=== PATIENT | male | born 1960 | race American Indian/Alaskan Native ===

== ENCOUNTER 2021-05-16 20:25 | Emergency (ER) | payer BC ==
[2021-05-16] MEDS ORDERED: IPRATROPIUM/ALBUTEROL SULFATE 3 ML AMPUL.NEB IH ONE (21:22)
[2021-05-16] MEDS ORDERED: predniSONE 50 MG TAB PO ONE (21:23)
--- NOTE | 2021-05-16 21:29 | Emergency Department Report ---
HPI - General Chief Complaint: Dyspnea/Respdistress Time Seen by Provider: 05/16/21 21:11 - HPI HPI: 60-year-old -[place] male presents to the emergency department with the complaint of a 4 to 5-day history some wheezing and mild shortness of breath. Patient denies any chest pain or any tightness but says "over the past few days sometimes I can hear myself breathing." He came into the emergency department because he says that he did not want to ignore something and have it turned into something worse. He denies any fever, cough, lower extremity swelling, back pain, nausea, vomiting or diaphoresis. Patient has a history of hypertension. He is a daily cigar smoker. Patient does not have any history of alcohol dependence but admits to drinking heavily over the weekend. He has been taking some Augmentin for a toothache, Mucinex, and is on amlodipine for his blood pressure. He is vaccinated against COVID-19. No recent travel or sick contacts at home. ED Past Medical Hx - Past Medical History Previous Medical History?: No - Surgical History Past Surgical History?: No - Social History Smoking Status: Current Some Day Smoker Substance Use Type: None - Medications Home Medications: Home Medications Medication Instructions Recorded Confirmed Last Taken Type Albuterol Mdi (or & Nicu Only) 2 puff IH QID PRN #8.5 gram 05/16/21 Unknown Rx [ProAir HFA Inhaler] predniSONE [Deltasone] 20 mg PO BID #6 tab 05/16/21 Unknown Rx ED Review of Systems ROS: Stated complaint: SOB Other details as noted in HPI Comment: All other systems reviewed and negative Constitutional: denies: chills, fever Eyes: denies: eye pain, vision change ENT: denies: ear pain, throat pain Respiratory: shortness of breath, wheezing Cardiovascular: denies: chest pain, edema Gastrointestinal: denies: abdominal pain, vomiting Genitourinary: denies: dysuria, discharge Musculoskeletal: denies: back pain, arthralgia Skin: denies: rash, lesions Neurological: denies: headache, weakness Physical Exam - Physical Exam Physical Exam: GENERAL: The patient is well-developed well-nourished. HENT: Normocephalic. Atraumatic. Patient has moist mucous membranes. EYES: Extraocular motions are intact. NECK: Supple. Trachea is midline. CHEST/LUNGS: Mild to moderate expiratory wheezing. No tachypnea or accessory muscle use. HEART/CARDIOVASCULAR: Regular. There is no tachycardia. There is no murmur. ABDOMEN: Abdomen is soft, nontender. Patient has normal bowel sounds. SKIN: Skin is warm and dry. NEURO: The patient is awake, alert, and oriented. The patient is cooperative. The patient has no focal neurologic deficits. Normal speech. MUSCULOSKELETAL: There is no tenderness or deformity. There is no limitation range of motion. ED Medical Decision Making - EKG Data -: EKG Interpreted by Me EKG shows normal: sinus rhythm, axis, intervals, QRS complexes, ST-T waves Rate: normal - EKG Data When compared to previous EKG there are: previous EKG unavailable Interpretation: normal EKG - Radiology Data Radiology results: image reviewed interpreted by me: Chest x-ray does not show any acute process. There are no pleural effusions, obvious pneumonia and there is no pneumothorax. No widened mediastinum. - Medical Decision Making This patient presents with a 4 to 5-day history of some wheezing without any significant shortness of breath. On examination he has mild to moderate expiratory wheezing. No tachypnea, accessory muscle use, or signs of any respiratory or acute distress. Chest x-ray does not show any pneumonia, pleural effusions, pneumothorax, widened mediastinum or any acute process. The patient was given a dose of prednisone and a DuoNeb breathing treatment. Upon reevaluation his wheezing/bronchospasm has decreased and the patient says that he feels improved. No oxygen desaturation with any ambulation. For all these reasons the patient appears safe for discharge home at this time. He has been given an albuterol inhaler and a course of steroids. He has been given outpatient referrals for primary care. He will return to the emergency department with any worsening of his symptoms or with any acute distress. Critical Care Time: No Critical care attestation.: If time is entered above; I have spent that time in minutes in the direct care of this critically ill patient, excluding procedure time. ED Disposition Clinical Impression: Bronchospasm Hypertension Qualifiers: Hypertension type: primary hypertension Qualified Code(s): I10 - Essential (primary) hypertension Disposition: 01 HOME / SELF CARE / HOMELESS Is pt being admited?: No Condition: Stable Instructions: Bronchospasm, Adult, Hypertension, Adult, Hypertension (ED) Additional Instructions: Please follow-up with a primary care physician in the next few days. I have given you a referral for a local primary care physician, Dr. Rivera, and a primary care clinic, [facility]. Take all medications as prescribed. Try to stay away from foods that are high in salt and caffeinated products. Keep a blood pressure log. Return to the emergency department with any worsening of your symptoms, new or concerning symptoms not addressed during this current emergency department visit, or with any acute distress. Prescriptions: predniSONE [Deltasone] 20 mg PO BID #6 tab Albuterol Mdi (or & Nicu Only) [ProAir HFA Inhaler] 2 puff IH QID PRN #8.5 gram PRN Reason: Shortness Of Breath Referrals: JOHN RIVERA MD [Staff Physician] - 3-5 Days [facility] [Provider Group] - 3-5 Days Time of Disposition: 22:43
--- NOTE | 2021-05-16 21:59 | XRay Report ---
CHEST 2 VIEWS INDICATION / CLINICAL INFORMATION: SOB. COMPARISON: None available. FINDINGS: SUPPORT DEVICES: None. HEART / MEDIASTINUM: The descending thoracic aorta is mildly tortuous. The proximal ascending aorta a ppears prominent on the lateral view. The heart size is within normal limits. LUNGS / PLEURA: No significant pulmonary or pleural abnormality. No pneumothorax. ADDITIONAL FINDINGS: No significant additional findings. IMPRESSION: 1. The descending thoracic aorta is mildly tortuous and the proximal ascending aorta appears mildly p rominent on the lateral view. This could be further evaluated with nonemergent echocardiogram if clin ically indicated. 2. The lungs are clear. Signer Name: Sam Story MD Signed: 05/16/2021 9:54 PM Workstation Name: [id number]
[2021-05-16 22:59] VITALS: BP 164/101
--- NOTE | 2021-05-18 11:46 | Electrocardiograph Report ---
[facility] Test Date: 2021-05-16 Test Time: 20:44:25 Pat Name: HEATHER WILSON Department: Room: Gender: M [employer]: : 1960 Requested By: DEUCE PADILLA Order Number: [id number] Reading MD: Weston Salazar Measurements Intervals [place] Rate: 88 P: -17 PA: 161 QRS: 6 QRSD: 67 T: 3 QT: 349 QTc: 423 Interpretive Statements Sinus rhythm Borderline ST elevation, anterior leads No previous ECG available for comparison Electronically Signed On 05-18-2021 11:45:39 EDT by Weston Salazar
== END 2021-05-16 22:59 | disposition home or self-care (01) ==
LOC: ED 20:25
DX: J98.01 Acute bronchospasm (principal); I10 Essential (primary) hypertension; F17.200 Nicotine dependence, unspecified, uncomplicated
CPT/HCPCS: 71046; 93005; 94640; 99283; J7512

== ENCOUNTER 2021-06-07 13:56 | Outpatient (CLI) | payer OTHER ==
--- NOTE | 2021-06-07 17:36 | XRay Report ---
LEFT ANKLE 3 VIEWS INDICATION: LEFT ANKLE PAIN. COMPARISON: None. IMPRESSION: No acute osseous abnormality is detected. Mild osteoarthritic changes are noted. There are a few small metallic foreign bodies in the posterior soft tissues consistent with shrapnel or bul let fragments. RIGHT WRIST 4 VIEWS INDICATION: Right wrist pain. COMPARISON: None. IMPRESSION: No acute osseous or soft tissue abnormality. Mild osteoarthritic changes are identifi ed particularly near the radial-scaphoid interspace. Signer Name: David Bryant Jr, MD Signed: 06/07/2021 5:32 PM Workstation Name: [id number]
== END 2021-06-07 13:57 | disposition home or self-care (01) ==
LOC: XRAY 13:56
PROVIDERS: ATTEND Internal Medicine
DX: M19.072 Primary osteoarthritis, left ankle and foot (principal); M19.032 Primary osteoarthritis, left wrist